=== PATIENT | female | born 1970 | race African-American/Black ===

== ENCOUNTER 2019-03-09 21:23 | Observation (INO) | payer OTHER ==
[2019-03-09 22:49] LABS: Appearance,Urine Clear (Clear); Bilirubin,Urine Negative (Negative); Blood,Urine Negative (Negative); Color,Urine Yellow; Glucose,Urine (UA) Negative (Negative); Ketones,Urine Negative (Negative); Leukocyte Esterase,Urine Trace (Negative); Mucus,Urine Rare /hpf; Nitrite,Urine Negative (Negative); Protein,Urine Negative (Negative); RBC,Urine 1 /hpf (0-5); Specific Gravity,Urine 1.023 (1.001-1.035); Squamous Epithelial Cell,Urine 5 /hpf (0-4); Urobilinogen,Urine <2.0 mg/dL (<2.0); WBC,Urine 3 /hpf (0-5)
[2019-03-09] MEDS ORDERED: SODIUM CHLORIDE 0.9% 1,000 ML IV STA (22:52)
[2019-03-09 23:33] LABS: Anisocytosis Slight; Basophils % (A) 0 %; Eosinophils # (A) 0.1 k/uL (0-0.7); Eosinophils % (A) 2 %; HCT 30.6 % (34.0-46.0); HGB 8.6 gm/dL (11.4-16.0); Hypochromasia Marked; Lymphocytes # (A) 2.3 k/uL (1.0-4.8); Lymphocytes % (A) 36 %; MCH 19.9 pg (25.0-35.0); MCHC 27.9 g/dL (31.0-37.0); MCV 71.3 fL (80.0-100.0); Mean Platelet Volume 7.4; Microcytosis Moderate; Monocytes # (A) 0.3 k/uL (0-1.0); Monocytes % (A) 5 %; Neutrophils # (A) 3.4 k/uL (1.3-7.7); Neutrophils % (A) 55 %; Platelet Count 264 k/uL (150-450); RDW 16.8 % (11.5-15.5); WBC 6.2 k/uL (3.8-10.6)
[2019-03-09 23:39] LABS: ALT 13 U/L (9-52); AST 15 U/L (14-36); African American GFR (CKD) >90 (>60 ml/min/1.73 sqM); Alkaline Phosphatase 51 U/L (38-126); Anion Gap 7 mmol/L; Blood Urea Nitrogen 11 mg/dL (7-17); Carbon Dioxide 27 mmol/L (22-30); Chloride 108 mmol/L (98-107); Glucose 102 mg/dL (74-99); Potassium 4.7 mmol/L (3.5-5.1); Sodium 142 mmol/L (137-145); Total Bilirubin 0.3 mg/dL (0.2-1.3); Total Protein 7.4 g/dL (6.3-8.2)
--- NOTE | 2019-03-09 23:47 | ED ---
General Adult HPI - General Source: patient, RN notes reviewed, old records reviewed Mode of arrival: ambulatory <Alexandr Mosqueda - Last Filed: 03/09/19 23:46> <Janina Diaz - Last Filed: 03/10/19 04:01> - General Chief complaint: Abdominal Pain Stated complaint: Urogenital Time Seen by Provider: 03/09/19 21:40 - History of Present Illness Initial comments: 48-year-old female patient with past medical history of substance abuse presents to ED for abdominal and back pain. Patient works that she has had 1 day of suprapubic and lower back pain. Patient also reports urinary symptoms of frequency urgency. Denies any dysuria. Patient reports that she had urgency when she was attempting to get to the bathroom, patient was that she had some minor urinary leakage. That the pain in her suprapubic region and radiates to her posterior lumbar back. He denies any chest pain shortness of breath. Patient denies any nausea vomiting or diarrhea. Systemic: Pt denies fatigue, fever/chills, rash. Pt denies weakness, night sweats, weight loss. Neuro: Pt denies headache, visual disturbances, syncope or pre-syncope. HEENT: Pt denies ocular discharge or irritation, otalgia, rhinorrhea, pharyngitis or notable lymphadenopathy. Cardiopulmonary: Pt denies chest pain, SOB, heart palpitations, dyspnea on exertion. Abdominal/GI: Pt denies abdominal pain, n/v/d. : Pt denies dysuria, burning w/ urination, frequency/urgency. Denies new onset urinary or bowel incontinence. MSK: Pt denies myalgia, loss of strength or function in extremities. Neuro: Pt denies new onset weakness, paresthesias. (Alexandr Mosqueda) - Related Data Home Medications Medication Instructions Recorded Confirmed Acetaminophen [Tylenol 8 Hour] 650 mg PO Q4H MDD 6 TABS/ 24 HOURS 03/09/19 03/09/19 Chlorpheniramine Maleate 4 mg PO Q4H PRN MDD 4 TABS/24 HOURS 03/09/19 03/09/19 [Chlor-Trimeton] Ibuprofen [Motrin] 600 mg PO Q6H PRN 03/09/19 03/09/19 LORazepam [Ativan] 1 - 2 mg PO Q4H PRN 03/09/19 03/09/19 Multivitamins, Thera [Multivitamin 1 tab PO DAILY 03/09/19 03/09/19 (formulary)] cloNIDine HCL [Catapres] 0.1 - 0.3 mg PO Q4H PRN 03/09/19 03/09/19 traZODone HCL [Desyrel] 50 - 150 mg PO HS 03/09/19 03/09/19 Allergies Allergy/AdvReac Type Severity Reaction Status Date / Time No Known Allergies Allergy Verified 03/09/19 22:00 Review of Systems ROS Other: All systems not noted in ROS Statement are negative. <Alexandr Mosqueda - Last Filed: 03/09/19 23:46> ROS Other: All systems not noted in ROS Statement are negative. <Janina Diaz - Last Filed: 03/10/19 04:01> ROS Statement: Those systems with pertinent positive or pertinent negative responses have been documented in the HPI. Past Medical History Past Medical History: No Reported History History of Any Multi-Drug Resistant Organisms: None Reported Past Surgical History: Section Additional Past Surgical History / Comment(s): neck Past Psychological History: No Psychological Hx Reported Smoking Status: Current every day smoker Past Alcohol Use History: Occasional Past Drug Use History: Cocaine <Alexandr Mosqueda - Last Filed: 03/09/19 23:46> General Exam <Alexandr Mosqueda - Last Filed: 03/09/19 23:46> - General Exam Comments Initial Comments: Constitutional: NAD, AOX3, Pt has pleasant affect. HEENT: NC/AT, trachea midline, neck supple, no lymphadenopathy. Posterior pharynx non erythematous, without exudates. External ears appear normal, without discharge. Mucous membranes moist. Eyes PERRLA, EOM intact. There is no scleral icterus. No pallor noted. Cardiopulmonary: RRR, no murmurs, rubs or gallops, no JVD noted. Lungs CTAB in anterior and posterior weiss. No peripheral edema. Abdominal exam: Abdomen soft and non-distended. Suprapubic region mildly tender to palpation. No other felix of abdominal tenderness, no guarding no rigidity. Bowel sounds active in LLQ. No hepatosplenomegaly. No ecchymosis Neuro: CN II-XII grossly intact. No nuchal rigidity. No raccon eyes, no chase sign, no hemotympanum. No cervical spinal tenderness. MSK: 5/5 strength in quadriceps, psoas muscles.No cervical thoracic, lumbar tenderness to palpation. No posterior calf tenderness bilaterally, homans sign negative bilaterally. Posterior tibialis and radial pulse +2 bilaterally. Sensat ion intact in upper and lower extremities. Full active ROM in upper and lower extremities. (Alexandr Mosqueda) Course Vital Signs 03/09/19 03/10/19 03/10/19 21:30 00:00 01:00 Temperature 98.2 F 99 F Pulse Rate 84 91 87 Respiratory 18 18 Rate Blood Pressure 164/88 154/94 O2 Sat by Pulse 99 98 Oximetry Medical Decision Making - Lab Data Result diagrams: 03/09/19 23:17 03/09/19 23:17 <Alexandr Mosqueda - Last Filed: 03/09/19 23:46> - Lab Data Result diagrams: 03/09/19 23:17 03/09/19 23:17 <Janina Diaz - Last Filed: 03/10/19 04:01> - Medical Decision Making 48-year-old female patient with past medical history of substance abuse presents to ED for abdominal and back pain. Patient works that she has had 1 day of suprapubic and lower back pain. Patient also reports urinary symptoms of frequency urgency. Denies any dysuria. Patient reports that she had urgency when she was attempting to get to the bathroom, patient was that she had some minor urinary leakage. That the pain in her suprapubic region and radiates to her posterior lumbar back. He denies any chest pain shortness of breath. Patient denies any nausea vomiting or diarrhea. Pt vss, afebrile. Physical exam displayed: Abdomen soft and non-distended. Suprapubic region mildly tender to palpation. No other felix of abdominal tenderness, no guarding no rigidity. 5/5 strength in quadriceps, psoas muscles.No cervical thoracic, lumbar tenderness to palpation. No posterior calf tenderness bilaterally, homans sign negative bilaterally. Posterior tibialis and radial pulse +2 bilaterally. Sensation intact in upper and lower extremities. Full active ROM in upper and lower extremities. Laboratory investigations revealed anemia 8.6. CMP nonimpressive. UA negative. HCG negative. PT signed out to Dr. Diaz pending CT. (Alexandr Mosqueda) I personally saw and evaluated patient. Patient continues to complain of low back pain and urinary frequency urgency and episodes of urinary incontinence. Patient denies any stool retention or incontinence. Patient reports that this is been worse over the past 2 days than previous. She denies saddle anesthesia up within reports sensation of that area feeling as though it is "tingly". CRP was ordered and was negative and very low suspicion for any chance of epidural abscess. On reevaluation the patient is resting comfortably in bed however given her constellation of symptoms I feel would be safest to obtain an MRI to rule out cauda equina. Patient is agreeable to this. (Janina Diaz) - Lab Data Lab Results 03/09/19 03/09/19 03/09/19 Range/Units 22:40 22:40 23:17 WBC 6.2 (3.8-10.6) k/uL RBC 4.30 (3.80-5.40) m/uL Hgb 8.6 L (11.4-16.0) gm/dL Hct 30.6 L (34.0-46.0) % MCV 71.3 L (80.0-100.0) fL MCH 19.9 L (25.0-35.0) pg MCHC 27.9 L (31.0-37.0) g/dL RDW 16.8 H (11.5-15.5) % Plt Count 264 (150-450) k/uL Neutrophils % 55 % Lymphocytes % 36 % Monocytes % 5 % Eosinophils % 2 % Basophils % 0 % Neutrophils # 3.4 (1.3-7.7) k/uL Lymphocytes # 2.3 (1.0-4.8) k/uL Monocytes # 0.3 (0-1.0) k/uL Eosinophils # 0.1 (0-0.7) k/uL Basophils # 0.0 (0-0.2) k/uL Hypochromasia Marked Anisocytosis Slight Microcytosis Moderate Sodium (137-145) mmol/L Potassium (3.5-5.1) mmol/L Chloride (98-107) mmol/L Carbon Dioxide (22-30) mmol/L Anion Gap mmol/L BUN (7-17) mg/dL Creatinine (0.52-1.04) mg/dL Est GFR (CKD-EPI)AfAm (>60 ml/min/1.73 sqM) Est GFR (CKD-EPI)NonAf (>60 ml/min/1.73 sqM) Glucose (74-99) mg/dL Calcium (8.4-10.2) mg/dL Total Bilirubin (0.2-1.3) mg/dL AST (14-36) U/L ALT (9-52) U/L Alkaline Phosphatase (38-126) U/L C-Reactive Protein (<10.0) mg/L Total Protein (6.3-8.2) g/dL Albumin (3.5-5.0) g/dL Urine Color Yellow Urine Appearance Clear (Clear) Urine pH 8.0 (5.0-8.0) Ur Specific [place] 1.023 (1.001-1.035) Urine Protein Negative (Negative) Urine Glucose (UA) Negative (Negative) Urine Ketones Negative (Negative) Urine Blood Negative (Negative) Urine Nitrite Negative (Negative) Urine Bilirubin Negative (Negative) Urine Urobilinogen <2.0 (<2.0) mg/dL Ur Leukocyte Esterase Trace H (Negative) Urine RBC 1 (0-5) /hpf Urine WBC 3 (0-5) /hpf Ur Squamous Epith Cells 5 H (0-4) /hpf Urine Mucus Rare H (None) /hpf Urine HCG, Qual Not Detected (Not Detectd) 03/09/19 03/09/19 Range/Units 23:17 23:17 WBC (3.8-10.6) k/uL RBC (3.80-5.40) m/uL Hgb (11.4-16.0) gm/dL Hct (34.0-46.0) % MCV (80.0-100.0) fL MCH (25.0-35.0) pg MCHC (31.0-37.0) g/dL RDW (11.5-15.5) % Plt Count (150-450) k/uL Neutrophils % % Lymphocytes % % Monocytes % % Eosinophils % % Basophils % % Neutrophils # (1.3-7.7) k/uL Lymphocytes # (1.0-4.8) k/uL Monocytes # (0-1.0) k/uL Eosinophils # (0-0.7) k/uL Basophils # (0-0.2) k/uL Hypochromasia Anisocytosis Microcytosis Sodium 142 (137-145) mmol/L Potassium 4.7 (3.5-5.1) mmol/L Chloride 108 H (98-107) mmol/L Carbon Dioxide 27 (22-30) mmol/L Anion Gap 7 mmol/L BUN 11 (7-17) mg/dL Creatinine 0.65 (0.52-1.04) mg/dL Est GFR (CKD-EPI)AfAm >90 (>60 ml/min/1.73 sqM) Est GFR (CKD-EPI)NonAf >90 (>60 ml/min/1.73 sqM) Glucose 102 H (74-99) mg/dL Calcium 9.0 (8.4-10.2) mg/dL Total Bilirubin 0.3 (0.2-1.3) mg/dL AST 15 (14-36) U/L ALT 13 (9-52) U/L Alkaline Phosphatase 51 (38-126) U/L C-Reactive Protein <5.0 (<10.0) mg/L Total Protein 7.4 (6.3-8.2) g/dL Albumin 4.0 (3.5-5.0) g/dL Urine Color Urine Appearance (Clear) Urine pH (5.0-8.0) Ur Specific [place] (1.001-1.035) Urine Protein (Negative) Urine Glucose (UA) (Negative) Urine Ketones (Negative) Urine Blood (Negative) Urine Nitrite (Negative) Urine Bilirubin (Negative) Urine Urobilinogen (<2.0) mg/dL Ur Leukocyte Esterase (Negative) Urine RBC (0-5) /hpf Urine WBC (0-5) /hpf Ur Squamous Epith Cells (0-4) /hpf Urine Mucus (None) /hpf Urine HCG, Qual (Not Detectd) Disposition <Alexandr Mosqueda - Last Filed: 03/09/19 23:46> <Janina Diaz - Last Filed: 03/10/19 04:01> Clinical Impression: Back pain, Urinary incontinence, Anemia, Morbid obesity with BMI of 40.0-44.9, adult Disposition: ADMITTED IP TO THIS HOSP Condition: Stable Referrals: None,Stated [Primary Care Provider] - 1-2 days
--- NOTE | 2019-03-10 00:08 | CT ---
History: ITS.REASON CT Reason: Pain Exam: CT ABDOMEN + PELVIS With Contrast Technique more: CTDI is 24 mGy and DLP is 2038.9 mGy-cm. Technique more: This CT exam was performed using one or more of the following dose reduction techniques: automated exposure control, adjustment of the mA and/or kV according to patient size, and/or use of iterative reconstruction technique. Comparison: None available FINDINGS: Mild basilar atelectasis or scarring. Abdominal solid organs and abdominal aorta appear within limits. Multiple small calcified gallstones layering within a nondistended, noninflamed appearing gallbladder. No bowel dilation or free air. Fat-containing ventral hernias without significant-appearing stranding, largest at the umbilicus. Appearance of anasarca. Bilateral tubal ligation clips. Normal caliber appendix without secondary signs. 2.1 cm calcified uterine fibroid. Bladder appears within limits. No free fluid. IMPRESSION: No evidence of acute process. Multiple small calcified gallstones layering within a nondistended, noninflamed appearing gallbladder. Fat-containing ventral hernias without significant-appearing stranding, largest at the umbilicus.
[2019-03-10] MEDS ORDERED: NALOXONE 0.4 MG/ML 1 ML VIAL IV PRN (03:35)
[2019-03-10] MEDS ORDERED: IBUPROFEN 400 MG TAB PO PRN (03:35)
[2019-03-10] MEDS ORDERED: ACETAMINOPHEN TAB 325 MG TAB PO PRN (03:35)
[2019-03-10 05:40] VITALS: RESP 18
[2019-03-10 08:09] VITALS: BP 136/103; PULSE 87; TEMP 98.6
--- NOTE | 2019-03-10 14:09 | MR ---
EXAMINATION TYPE: MR lumbar spine wo/w con DATE OF EXAM: 03/10/2019 COMPARISON: None HISTORY: back pain, urinary incontinence TECHNIQUE: Multiplanar, multisequence images of the lumbar spine were acquired utilizing 12.5 mL intravenous Justo avist gadolinium contrast. FINDINGS: The vertebral bodies of the lumbar spine maintain normal vertebral body heights. Grade 1 anterolisthe sis is seen of L3 on L4. Overall bone marrow signal is lower limits of normal. No pathologic enhancem ent of the lumbar spine is demonstrated. However within the thecal sac there are few clumped nerve ro ots at the level of L4 seen to the left that are enhancing on postcontrast image 13. Distally very fa int enhancement is seen a few nerve roots peripherally oriented within the thecal sac on image 5. L1-L2: There is mild facet arthropathy. No disc herniation, spinal canal stenosis nor neural foramina l narrowing. L2-L3: There is a very small broad-based disc bulge and facet arthropathy without neural foraminal na rrowing or spinal canal stenosis. L3-L4: There is very minimal disc uncovering seen and facet arthropathy resulting in mild bilateral n eural foraminal narrowing without spinal canal stenosis. L4-L5: There is facet hypertrophy and ligamentum flavum buckling as well as a broad-based disc bulge contributing to mild bilateral neural foraminal narrowing, left greater than right given the eccentri c disc bulge and minimal spinal canal stenosis. L5-S1: There is a broad-based disc bulge and facet arthropathy without spinal canal stenosis nor neur al foraminal narrowing. IMPRESSION: 1. 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 2. Grade 1 anterolisthesis of L3 on L4 is seen resulting in disc uncovering. 3. No focal disc herniation is seen however there is minimal spinal canal stenosis at L4-L5 secondary to degenerative disc disease. 4. Bone marrow signal is lower limits of normal. Correlate with CBC to.
--- NOTE | 2019-03-10 14:29 | P.DS ---
Providers Date of admission: 03/10/19 03:35 Attending physician: Enrico Cooper Primary care physician: Stated None Hospital Course: Please refer to my HPI Patient Condition at Discharge: Stable Plan - Discharge Summary New Discharge Prescriptions: No Action traZODone HCL [Desyrel] 100 mg PO HS cloNIDine HCL [Catapres] 0.1 - 0.3 mg PO Q4H PRN PRN Reason: BLOOD PRESSURE >160/100 Ibuprofen [Motrin] 600 mg PO Q6H PRN PRN Reason: Pain Chlorpheniramine Maleate [Chlor-Trimeton] 4 mg PO Q4H PRN MDD 4 TABS/24 HOURS PRN Reason: Allergy Symptoms Acetaminophen [Tylenol 8 Hour] 650 mg PO Q4H MDD 6 TABS/ 24 HOURS Multivitamins, Thera [Multivitamin (formulary)] 1 tab PO DAILY LORazepam [Ativan] 1 mg PO Q4H PRN PRN Reason: Anxiety Discharge Medication List Acetaminophen [Tylenol 8 Hour] 650 mg PO Q4H MDD 6 TABS/ 24 HOURS 03/09/19 [History] Chlorpheniramine Maleate [Chlor-Trimeton] 4 mg PO Q4H PRN MDD 4 TABS/24 HOURS 03/09/19 [History] Ibuprofen [Motrin] 600 mg PO Q6H PRN 03/09/19 [History] LORazepam [Ativan] 1 mg PO Q4H PRN 03/09/19 [History] Multivitamins, Thera [Multivitamin (formulary)] 1 tab PO DAILY 03/09/19 [History] cloNIDine HCL [Catapres] 0.1 - 0.3 mg PO Q4H PRN 03/09/19 [History] traZODone HCL [Desyrel] 100 mg PO HS 03/09/19 [History] Follow up Appointment(s)/Referral(s): None,Stated [Primary Care Provider] - 1-2 days Discharge Disposition: HOME SELF-CARE
--- NOTE | 2019-03-10 14:29 | P.HPIM ---
History of Present Illness Patient is a pleasant 48-year-old female came in complaining of back pain does have this low back pain going on for some time patient denied any weakness a able tablet but the patient that is comparing of reticular symptoms and urinary incontinence and bowel incontinence. Patient also describes numbness in anesthesia around the. Advil area. Because of which CAT scan of the abdomen was obtained which did not show any significant abnormality except for cholelithiasis although patient's symptoms are not consistent with ch olelithiasis or cholecystitis. We were able to obtain an MRI which did not show any cauda equina syndrome or any significant cord compression. Patient is ablating well no further intervention is being done patient will be discharged and will continue her ibuprofen patient has a PCP in [facility] she's returned to [facility]. Patient can call or follow with general surgery as an outpatient patient denied any shortness of breath fever chills dysuria. Review of Systems REVIEW OF SYSTEMS: CONSTITUTIONAL: No fever, no malaise, no fatigue. HEENT: No recent visual problems or hearing problems. Denied any sore throat. CARDIOVASCULAR: No chest pain, orthopnea, PND, no palpitations, no syncope. PULMONARY: No shortness of breath, no cough, no hemoptysis. GASTROINTESTINAL: No diarrhea, no nausea, no vomiting, no abdominal pain. NEUROLOGICAL: No headaches, no weakness, no numbness. HEMATOLOGICAL: Denies any bleeding or petechiae. GENITOURINARY: Denies any burning micturition, frequency, or urgency. MUSCULOSKELETAL/RHEUMATOLOGICAL: As mentioned in HPI ENDOCRINE: Denies any polyuria or polydipsia. The rest of the 14-point review of systems is negative. Past Medical History Past Medical History: No Reported History History of Any Multi-Drug Resistant Organisms: None Reported Past Surgical History: Section Additional Past Surgical History / Comment(s): neck surg X2 with plate and screws, C Sec X2 Past Anesthesia/Blood Transfusion Reactions: No Reported Reaction Smoking Status: Current every day smoker - Past Family History Mother Family Medical History: Hypertension Father Additional Family Medical History / Comment(s): Bad arteries R/T IVDA Medications and Allergies Home Medications Medication Instructions Recorded Confirmed Type Acetaminophen [Tylenol 8 Hour] 650 mg PO Q4H MDD 6 TABS/ 24 HOURS 03/09/19 03/09/19 History Chlorpheniramine Maleate 4 mg PO Q4H PRN MDD 4 TABS/24 HOURS 03/09/19 03/09/19 History [Chlor-Trimeton] Ibuprofen [Motrin] 600 mg PO Q6H PRN 03/09/19 03/09/19 History LORazepam [Ativan] 1 mg PO Q4H PRN 03/09/19 03/10/19 History Multivitamins, Thera [Multivitamin 1 tab PO DAILY 03/09/19 03/09/19 History (formulary)] cloNIDine HCL [Catapres] 0.1 - 0.3 mg PO Q4H PRN 03/09/19 03/09/19 History traZODone HCL [Desyrel] 100 mg PO HS 03/09/19 03/10/19 History Allergies Allergy/AdvReac Type Severity Reaction Status Date / Time No Known Allergies Allergy Verified 03/10/19 04:34 Physical Exam Vitals: Vital Signs Temp Pulse Pulse Resp BP BP Pulse Ox 03/10/19 07:40 98.6 F 87 18 136/103 96 03/10/19 04:45 98.0 F 79 18 146/84 97 03/10/19 04:20 98 F 84 20 155/74 97 03/10/19 01:00 99 F 87 18 154/94 98 03/10/19 00:00 91 03/09/19 21:30 98.2 F 84 18 164/88 99 Intake and Output 03/09/19 03/10/19 03/10/19 22:59 06:59 14:59 Intake Total 240 Balance 240 Intake: Oral 240 Other: # Voids 1 Weight 122.47 kg PHYSICAL EXAMINATION: GENERAL: The patient is alert and oriented x3, not in any acute distress. Well developed, well nourished. HEENT: Pupils are round and equally reacting to light. EOMI. No scleral icterus. No conjunctival pallor. Normocephalic, atraumatic. No pharyngeal erythema. No thyromegaly. CARDIOVASCULAR: S1 and S2 present. No murmurs, rubs, or gallops. PULMONARY: Chest is clear to auscultation, no wheezing or crackles. ABDOMEN: Soft, nontender, nondistended, normoactive bowel sounds. No palpable organomegaly. MUSCULOSKELETAL: No joint swelling or deformity. Patient does have previous scars in the back from previous surgeries. Patient does have a little hernia EXTREMITIES: No cyanosis, clubbing, or pedal edema. NEUROLOGICAL: Gross neurological examination did not reveal any focal deficits. SKIN: No rashes. Results CBC & Chem 7: 03/09/19 23:17 03/09/19 23:17 Labs: Abnormal Lab Results - Last 24 Hours (Table) 03/09/19 03/09/19 03/09/19 Range/Units 22:40 23:17 23:17 Hgb 8.6 L (11.4-16.0) gm/dL Hct 30.6 L (34.0-46.0) % MCV 71.3 L (80.0-100.0) fL MCH 19.9 L (25.0-35.0) pg MCHC 27.9 L (31.0-37.0) g/dL RDW 16.8 H (11.5-15.5) % Chloride 108 H (98-107) mmol/L Glucose 102 H (74-99) mg/dL Ur Leukocyte Esterase Trace H (Negative) Ur Squamous Epith Cells 5 H (0-4) /hpf Urine Mucus Rare H (None) /hpf Thrombosis Risk Factor Assmnt - Choose All That Apply Each Factor Represents 1 point: Age 41-60 years Thrombosis Risk Factor Assessment Total Risk Factor Score: 1 Thrombosis Risk Factor Assessment Level: Low Risk Assessment and Plan Plan: -Back pain appears to be chronic back pain there is no evidence of cord compression or cauda equina syndrome although she does have some chronic changes on the MRI patient will be discharged today to follow up with the primary care patient patient will benefit from weight loss in the exercise and outpatient physical therapy. -Cholelithiasis incidental finding will not need any emergent surgical intervention this point of time patient related to follow with general surgery as an outpatient same thing was explained to the patient -Obesity: Counseling was provided -Nicotine abuse: Counseling was provided history of cocaine use in the past counseling was provided regarding this as well.
== END 2019-03-10 15:35 | disposition home or self-care (01) ==
LOC: EC 21:23 → 1SOBS 03-10 03:35
PROVIDERS: ADMIT Internal Medicine; ATTEND Internal Medicine
DX: G89.29 Other chronic pain (principal); M54.5 Low back pain; E66.01 Morbid (severe) obesity due to excess calories; Z68.41 Body mass index [BMI] 40.0-44.9, adult; R10.9 Unspecified abdominal pain; R20.0 Anesthesia of skin; R35.0 Frequency of micturition; N39.41 Urge incontinence; R15.9 Full incontinence of feces; D64.9 Anemia, unspecified; F17.200 Nicotine dependence, unspecified, uncomplicated; F19.11 Other psychoactive substance abuse, in remission; Z79.899 Other long term (current) drug therapy; Z82.49 Family history of ischemic heart disease and other diseases of the circulatory system
CPT/HCPCS: 36415; 72158; 74177; 80053; 81001; 81025; 85025; 86140; 96360; 99285

== ENCOUNTER 2021-06-04 11:41 | Observation (INO) | payer OTHER ==
[2021-06-04] MEDS ORDERED: KETOROLAC 15 MG/ML 1 ML VIAL IM STA (11:51)
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
--- NOTE | 2021-06-04 12:27 | XR ---
EXAMINATION TYPE: XR tibia fibula LT DATE OF EXAM: 06/04/2021 COMPARISON: NONE HISTORY: 50 years Female. STUDY INDICATION GIVEN: Trauma . TECHNIQUE: Frontal and lateral radiographs of the left tibia and fibula IMPRESSION: Mild soft tissue swelling in the mid and lower leg. Trace ankle joint effusion. Tiny avulsion injury involving the lateral malleolus suspected correlate with point tenderness. The t ibia is intact. Tricompartmental joint space narrowing in the knee joint likely related to arthrosis. Enthesophyte ch anges at the insertion of the Achilles tendon. Calcaneal spur noted. Multiple phleboliths noted in the soft tissue in the leg.
[2021-06-04] MEDS ORDERED: DIPH,PERTUS(ACELL)TETVAC-LF 0.5 ML VIAL IM ONE (13:59)
[2021-06-04] MEDS ORDERED: HYDROmorphone 0.5 MG/0.5 ML SYRINGE IVP STA (13:59)
[2021-06-04] MEDS ORDERED: SODIUM CHLORIDE 0.9% 1,000 ML IV ONE (14:02)
[2021-06-04 14:46] LABS: Basophils % (A) 0 %; Eosinophils % (A) 1 %; HCT 42.6 % (34.0-46.0); Lymphocytes # (A) 1.6 k/uL (1.0-4.8); Lymphocytes % (A) 28 %; MCH 29.9 pg (25.0-35.0); MCHC 32.9 g/dL (31.0-37.0); MCV 90.9 fL (80.0-100.0); Mean Platelet Volume 7.1; Monocytes # (A) 0.2 k/uL (0-1.0); Monocytes % (A) 4 %; Neutrophils # (A) 3.7 k/uL (1.3-7.7); Neutrophils % (A) 65 %; Platelet Count 217 k/uL (150-450); RBC 4.68 m/uL (3.80-5.40); RDW 14.2 % (11.5-15.5); WBC 5.7 k/uL (3.8-10.6)
[2021-06-04 15:01] LABS: ALT 15 U/L (4-34); AST 21 U/L (14-36); African American GFR (CKD) >90 (>60 ml/min/1.73 sqM); Albumin 3.9 g/dL (3.5-5.0); Alkaline Phosphatase 61 U/L (38-126); Anion Gap 7 mmol/L; Blood Urea Nitrogen 15 mg/dL (7-17); Calcium 9.2 mg/dL (8.4-10.2); Carbon Dioxide 27 mmol/L (22-30); Chloride 104 mmol/L (98-107); Creatine Kinase 232 U/L (30-135); Glucose 102 mg/dL (74-99); Non-African American GFR(CKD) >90 (>60 ml/min/1.73 sqM); Potassium 4.4 mmol/L (3.5-5.1); Sodium 138 mmol/L (137-145); Total Bilirubin 0.8 mg/dL (0.2-1.3); Total Protein 7.3 g/dL (6.3-8.2)
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
[2021-06-04] MEDS ORDERED: MORPHINE SULFATE 4 MG/ML SYRINGE IV PRN (16:29)
[2021-06-04] MEDS: HYDROcodone/APAP 5-325MG 1 EACH TAB PO PRN (18:16)
[2021-06-05] MEDS: HYDROcodone/APAP 5-325MG 1 EACH TAB PO PRN ×2 (01:50→08:52)
[2021-06-05] MEDS ORDERED: SODIUM CHLORIDE 0.9% 1,000 ML IV SCH (08:00)
[2021-06-05 08:45] VITALS: BP 116/63; PULSE 74; RESP 17; TEMP 98
--- NOTE | 2021-06-05 09:08 | P.PN ---
Subjective Progress Note Date: 06/05/21 The patient continues to have pain in her leg that is relatively unchanged from yesterday. At the time of my exam, she is sitting at bedside, eating breakfast. She complains of pain in her leg. She is still able to get up and walk. Objective - Vital Signs Vital signs: Vital Signs Temp 98.0 F 06/05/21 08:18 Pulse 74 06/05/21 08:18 Resp 17 06/05/21 08:18 BP 116/63 06/05/21 08:18 Pulse Ox 100 06/05/21 08:18 Intake & Output 06/04/21 06/05/21 06/05/21 18:59 06:59 18:59 Intake Total 240 30 Output Total 300 Balance 240 -270 Weight 137.892 kg Intake: Oral 240 30 Output: Urine 300 - Exam The patient is sitting up at bedside eating. Her leg is soft and compressible. She is tender throughout the calf. She has minimal pain with PROM of the ankle or toes. SILT throughout the foot. Able to fire EHL/FHL/EDL/FDL. She was able to get up and walk for me without assistance. Clinically she doesn't appear to be in severe distress. - Labs CBC & Chem 7: 06/04/21 14:42 06/04/21 14:42 Labs: Abnormal Lab Results - Last 24 Hours (Table) 06/04/21 Range/Units 14:42 Glucose 102 H (74-99) mg/dL Creatine Kinase 232 H (30-135) U/L Assessment and Plan Assessment: Left leg contusion Plan: The patient has no signs of acute compartment syndrome. Her leg is soft, she has no pain with PROM of the ankle or toes, she is able to walk for me, and she is eating. We will get her up with PT today. I recommended continued non-surgical treatment for her leg. We will plan on discharging her home today. Time with Patient: Less than 30
[2021-06-05] MEDS ORDERED: IBUPROFEN 600 MG TAB PO PRN (10:58)
== END 2021-06-05 14:38 | disposition home or self-care (01) ==
LOC: EC 11:41 → 6PED 14:02
PROVIDERS: ADMIT Orthopaedic Surgery; ATTEND Orthopaedic Surgery
DX: S87.82XA Crushing injury of left lower leg, initial encounter (principal); S80.12XA Contusion of left lower leg, initial encounter; V89.2XXA Person injured in unspecified motor-vehicle accident, traffic, initial encounter; W22.8XXA Striking against or struck by other objects, initial encounter; Y92.410 Unspecified street and highway as the place of occurrence of the external cause; F17.210 Nicotine dependence, cigarettes, uncomplicated; I10 Essential (primary) hypertension; M77.32 Calcaneal spur, left foot; E66.9 Obesity, unspecified; Z68.41 Body mass index [BMI] 40.0-44.9, adult; Z79.899 Other long term (current) drug therapy; Z98.891 History of uterine scar from previous surgery; Z98.890 Other specified postprocedural states; Z82.49 Family history of ischemic heart disease and other diseases of the circulatory system; Z23 Encounter for immunization
CPT/HCPCS: 99285; 96361 ×2; 96360; 96372; 80053; 82550; 85025; 73590; 90715; 90471; G0378 ×2; J1885; J1170

== ENCOUNTER → 2021-12-21 | Outpatient (CLI) | payer BC, OTHER ==
--- NOTE | 2021-12-23 12:09 | MM ---
Reason for exam: screening (asymptomatic). Baseline mammogram. History: Patient is postmenopausal. Physical Findings: A clinical breast exam by your physician is recommended on an annual basis and results should be correlated with mammographic findings. MG Screening Mammo w CAD Bilateral CC and MLO view(s) were taken. There are scattered fibroglandular densities. There is no discrete abnormality. ASSESSMENT: Negative, BI-RAD 1 RECOMMENDATION: Routine screening mammogram of both breasts in 1 year.
== END | disposition home or self-care (01) ==
LOC: RADMAMWWP 10:43
PROVIDERS: ATTEND Family Medicine
DX: Z12.31 Encounter for screening mammogram for malignant neoplasm of breast (principal)
CPT/HCPCS: 77067

== ENCOUNTER 2022-04-13 08:54 | Emergency (ER) | payer BC, OTHER ==
[2022-04-13] MEDS ORDERED: ONDANSETRON 4 MG/2 ML VIAL IVP STA (09:58)
[2022-04-13] MEDS ORDERED: ORPHENADRINE 30 MG/ML 2 ML VIAL IVP STA (09:58)
[2022-04-13] MEDS ORDERED: HYDROmorphone 1 MG/ML 1 ML SYRINGE IVP STA (09:58)
--- NOTE | 2022-04-13 10:03 | ED ---
Back Pain HPI - General Chief Complaint: Back Pain/Injury Stated Complaint: Muscle spasms, back pain Time Seen by Provider: 04/13/22 09:48 Source: patient, RN notes reviewed Mode of arrival: ambulatory Limitations: no limitations - History of Present Illness Initial Comments: This a 51-year-old female presents emergency Department with chief complaint of back pain. Patient states that she's been having increasing back pain in which she states is not alleviated over the last 2 weeks. She has no dysuria no hematuria denies abdominal pain no chest pain or shortness of breath. She has increased pain with twisting bending or any range of motion. Patient states that her medication is not helping her. Patient denies any trauma no other complaints. Patient denies any bowel, bladder incontinence or retention of emesis is no lower external paresthesias. Patient has no pain areas down her legs. - Related Data Home Medications Medication Instructions Recorded Confirmed amLODIPine [Norvasc] 5 mg PO DAILY 06/04/21 06/04/21 lisinopriL [Prinivil] 20 mg PO DAILY 06/04/21 06/04/21 Previous Rx's Medication Instructions Recorded HYDROcodone/APAP 5-325MG [Price 1 tab PO Q4HR PRN 3 Days #18 tab 06/05/21 5-325] HYDROcodone/APAP 5-325MG [Price 1 tab PO Q6HR PRN 3 Days #18 tab 06/05/21 5-325] Cyclobenzaprine [Flexeril] 10 mg PO TID PRN #15 tab 04/13/22 Ibuprofen [Motrin] 800 mg PO Q6HR #30 tab 04/13/22 Allergies Allergy/AdvReac Type Severity Reaction Status Date / Time No Known Allergies Allergy Verified 04/13/22 09:44 Review of Systems ROS Statement: Those systems with pertinent positive or pertinent negative responses have been documented in the HPI. ROS Other: All systems not noted in ROS Statement are negative. Past Medical History Past Medical History: Diabetes Mellitus, Hypertension Additional Past Medical History / Comment(s): gestational diabetes History of Any Multi-Drug Resistant Organisms: None Reported Past Surgical History: Section Additional Past Surgical History / Comment(s): neck surg X2 with plate and screws, C Sec X2 Past Anesthesia/Blood Transfusion Reactions: No Reported Reaction Past Psychological History: No Psychological Hx Reported Smoking Status: Current every day smoker Past Alcohol Use History: None Reported Past Drug Use History: None Reported - Past Family History Mother Family Medical History: Hypertension Father Additional Family Medical History / Comment(s): Bad arteries R/T IVDA General Exam Limitations: no limitations General appearance: alert, in no apparent distress, obese Head exam: Present: atraumatic, normocephalic, normal inspection Eye exam: Present: normal appearance, PERRL, EOMI. Absent: scleral icterus, conjunctival injection, periorbital swelling ENT exam: Present: normal exam, mucous membranes moist Neck exam: Present: normal inspection, full ROM. Absent: tenderness, meningismus, lymphadenopathy Respiratory exam: Present: normal lung sounds bilaterally. Absent: respiratory distress, wheezes, rales, rhonchi, stridor Cardiovascular Exam: Present: regular rate, normal rhythm, normal heart sounds. Absent: systolic murmur, diastolic murmur, rubs, gallop, clicks GI/Abdominal exam: Present: soft, normal bowel sounds. Absent: distended, tenderness, guarding, rebound, rigid Extremities exam: Present: normal inspection, full ROM, normal capillary refill. Absent: tenderness, pedal edema, joint swelling, calf tenderness Back exam: Present: full ROM, tenderness, muscle spasm, paraspinal tenderness. Absent: vertebral tenderness Course Vital Signs 04/13/22 04/13/22 09:42 10:05 Temperature 98.1 F Pulse Rate 72 71 Respiratory 15 18 Rate Blood Pressure 110/77 107/64 O2 Sat by Pulse 98 96 Oximetry Medical Decision Making - Medical Decision Making 51-year-old female presented for back pain. Patient has severe degenerative changes on x-ray. Patient's pain is improved. Patient's vitals are stable for discharge in stable condition with follow-up return parameters were discussed. Disposition Clinical Impression: Back pain Disposition: HOME SELF-CARE Condition: Stable Instructions (If sedation given, give patient instructions): Back Pain (ED) Additional Instructions: Please return to the Emergency Department if symptoms worsen or any other concerns. Prescriptions: Cyclobenzaprine [Flexeril] 10 mg PO TID PRN #15 tab PRN Reason: Muscle Spasm Ibuprofen [Motrin] 800 mg PO Q6HR #30 tab Is patient prescribed a controlled substance at d/c from ED?: No Referrals: Akua Mei MD [Primary Care Provider] - 1-2 days Time of Disposition: 12:18
[2022-04-13 10:25] VITALS: RESP 18
--- NOTE | 2022-04-13 10:54 | XR ---
EXAM TYPE: LUMBAR SPINE X RAY SERIES COMPARISON: NONE HISTORY: Pain TECHNIQUE: 3 views are submitted. FINDINGS: Alignment is anatomic. The pedicles are intact. The transverse processes are intact. There is grad e 1 anterolisthesis L3 on L4 and L4 on L5 with severe multilevel facet arthropathy multilevel mild de generative disc disease. IMPRESSION: 1. Severe multilevel facet arthropathy with grade 1 anterolisthesis L3 on L4 and L4 on L5.
--- NOTE | 2022-04-13 10:55 | XR ---
EXAMINATION TYPE: XR thoracic spine 2V DATE OF EXAM: 04/13/2022 COMPARISON: NONE HISTORY: Pain TECHNIQUE: 3 views submitted FINDINGS: Alignment is anatomic. There is no compression deformities. Vertebral body height and disc interspa armand are maintained. Incidental note made of postsurgical change involving the cervical spine. There is multilevel moderate degenerative disc disease involving the mid and lower thoracic spine with hype rtrophic spurring. Incidental note made of cardiomegaly. Retrocardiac density could represent hiatal hernia, fat-containing diaphragmatic hernia or a pericardial lipoma other etiologies not excluded cor relate clinically. IMPRESSION: 1. Multilevel moderate hypertrophic and degenerative changes mid and lower thoracic spine..
[2022-04-13] MEDS ORDERED: ACET/COD 300 MG/30 MG STARTER PACK 6 TAB BTL PO STA (12:19)
[2022-04-13 13:51] VITALS: BP 110/68; PULSE 78; TEMP 97.6
== END 2022-04-13 13:50 | disposition home or self-care (01) ==
LOC: EC 08:54
DX: M54.50 Low back pain, unspecified (principal); E11.9 Type 2 diabetes mellitus without complications; I10 Essential (primary) hypertension; F17.200 Nicotine dependence, unspecified, uncomplicated
CPT/HCPCS: 72070; 72100; 99283; 96374; 96375; J2360; J2405; J1170